=== PATIENT | male | born 1990 | race Caucasian/White ===

== ENCOUNTER 2022-11-07 17:46 | Emergency (ER) | payer OTHER ==
[~2022-11-07] VITALS: Ht 188 cm; Wt 136.1 kg
[2022-11-07 18:11] VITALS: BP_SYST 125
== END 2022-11-07 23:15 | disposition left against medical advice (07) ==
LOC: SED 17:46
DX: L02.211 Cutaneous abscess of abdominal wall (principal); Z53.21 Procedure and treatment not carried out due to patient leaving prior to being seen by health care provider
CPT/HCPCS: 99281

== ENCOUNTER 2022-11-09 12:06 | Emergency (ER) | payer OTHER ==
[~2022-11-09] VITALS: Ht 188 cm; Wt 140.6 kg
[2022-11-09 12:14] VITALS: BP_SYST 145; PULSE 85; RESP 18; TEMP 98.5; O2SAT 98
[2022-11-09] MEDS ORDERED: SULFAMETHOXAZOLE/TRIMETHOPR DS 1 TABLET PO ONE (13:30)
[2022-11-09] MEDS ORDERED: cephALEXin 500 MG CAPSULE PO ONE (13:30)
[2022-11-09] MEDS ORDERED: CEPH-548 PO (13:31)
[2022-11-09] MEDS ORDERED: SULF1TAB48 PO (13:31)
[2022-11-09 13:57] VITALS: BP_SYST 145; PULSE 85; RESP 18; TEMP 98.5; O2SAT 98
== END 2022-11-09 13:58 | disposition home or self-care (01) ==
LOC: SED 12:06
DX: L02.216 Cutaneous abscess of umbilicus (principal); L03.316 Cellulitis of umbilicus; F17.200 Nicotine dependence, unspecified, uncomplicated; F12.90 Cannabis use, unspecified, uncomplicated; Z79.899 Other long term (current) drug therapy
CPT/HCPCS: 99283